=== PATIENT | female | born 1985 | race Hispanic/Latino ===

== ENCOUNTER 2017-12-09 10:26 | Emergency (ER) | payer BC, OTHER ==
[2017-12-09] MEDS ORDERED: MAG HYDROX/AL HYDROX/SIMETH ES 30 ML SUSP UDCUP ONE (10:37)
[2017-12-09] MEDS ORDERED: LIDOCAINE HCL 2% VISCOUS 15 ML UDCUP ONE (10:37)
[2017-12-09 11:11] LABS: BASOPHILS % (AUTO) 0.7 % (0.0-5.0); EOSINOPHILS % (AUTO) 3.9 % (0.0-8.0); HEMATOCRIT 40.1 % (36-48); LYMPHOCYTES % (AUTO) 22.4 % (21.0-51.0); MEAN CORPUSCULAR HEMOGLOBIN 28.5 pg (27.0-33.0); MEAN CORPUSCULAR HGB CONC 34.3 g/dL (32.0-36.0); MEAN CORPUSCULAR VOLUME 83.2 fL (79-99); MONOCYTES % (AUTO) 6.1 % (3.0-13.0); NEUTROPHILS % (AUTO) 66.9 % (40.0-77.0); PLATELET COUNT (AUTO) 325 K/uL (130-400); RED BLOOD CELL COUNT(AUTO) 4.83 MIL/uL (4.00-5.50); RED CELL DISTRIBUTION WIDTH 13.9 % (11.0-15.5); WHITE BLOOD COUNT (AUTO) 10.1 K/uL (4.8-10.8)
[2017-12-09 11:18] LABS: AMPHET/METH SCREEN,URINE NEGATIVE (NEGATIVE); BARBITURATE SCREEN, URINE NEGATIVE (NEGATIVE); BENZODIAZEPINES SCREEN,URINE POSITIVE (NEGATIVE); CANNABINOID SCREEN,URINE NEGATIVE (NEGATIVE); COCAINE SCREEN,URINE NEGATIVE (NEGATIVE); OPIATE SCREEN,URINE NEGATIVE (NEGATIVE); PHENCYCLIDINE SCREEN,URINE NEGATIVE (NEGATIVE)
[2017-12-09 11:18] LABS: CREATININE 0.9 mg/dL (0.5-1.5); POTASSIUM 3.9 mmol/L (3.5-5.1)
[2017-12-09 11:20] LABS: APPEARANCE,URINE Cloudy (CLEAR); BILIRUBIN,URINE Negative (NEGATIVE); COLOR,URINE Yellow (YELLOW); GLUCOSE, URINE (UA) Negative (NEGATIVE); KETONES,URINE Negative (NEGATIVE); LEUKOCYTE ESTERASE ,URINE Negative (NEGATIVE); NITRATE,URINE Negative (NEGATIVE); OCCULT BLOOD,URINE Trace (NEGATIVE); PROTEIN,URINE Negative (NEGATIVE); UROBILINOGEN,URINE 0.2 mg/dL (0.2-1.0)
[2017-12-09 11:23] LABS: BILIRUBIN,TOTAL 0.4 mg/dL (0.2-1.0)
[2017-12-09 12:11] LABS: BACTERIA,URINE Rare /HPF (None Seen); RBC,URINE 0-1 /HPF (0-1); SQUAMOUS EPITHELIAL CELL,UR Rare /HPF (0-2)
== END 2017-12-09 11:57 | disposition home or self-care (01) ==
LOC: EDH 10:26
DX: K29.70 Gastritis, unspecified, without bleeding (principal); I10 Essential (primary) hypertension; F41.9 Anxiety disorder, unspecified; Z87.891 Personal history of nicotine dependence
CPT/HCPCS: 36415; 80053; 80305; 81001; 82150; 83690; 84484; 85025; 86677; 93005

== ENCOUNTER 2020-01-15 19:39 | Inpatient (IN) | payer OTHER, SELFPAY ==
[~2020-01-15] VITALS: Ht 149.9 cm; Wt 82.6 kg
[~2020-01-15 19:39] MED LIST: MAGNESIUM CITRATE 296 ML SOLUTION PO ONE
[2020-01-15 21:00] VITALS: BP 138/88; PULSE 68; RESP 18; TEMP 98.1
--- NOTE | 2020-01-15 21:00 | NUR ---
Patient came in via wheelchair wheeled by Jesus Fowler, vat washer. Patient is a direct admit from Dr. Esparza with chief complaints of abdominal pain pelvic area started 3 weeks ago. Patient oriented to room, call light given Plan of care discussed with patient she verbalizes understanding.
[2020-01-15] MEDS: TIZANIDINE HCL 2 MG TABLET PO SCH (21:40)
[2020-01-15] MEDS: DEXTROSE 5%-LACTATED RINGERS 1,000 ML IV SCH (22:43)
[2020-01-16] VITALS (7 sets, daily range): BP systolic 91–149; BP diastolic 57–87; PULSE 69–98; RESP 18–20; TEMP 97.8–98.2
[2020-01-16] MEDS ORDERED: MEPERIDINE-PF 50 MG/ML SYG ONE (00:12)
[2020-01-16] MEDS: DEXTROSE 5%-LACTATED RINGERS 1,000 ML IV SCH ×3 (05:39→22:17)
[2020-01-16] MEDS: PROMETHAZINE HCL 25 MG/ML 1ML AMPULE IM PRN ×4 (05:50→22:18)
--- NOTE | 2020-01-16 08:45 | NUR ---
UROLOGY CONSULT DR. KNOWLES'S OFFICE NOTIFIED OF CONSULT. OFFICE STAED THEY WILL INFORM DR. KNOWLES.
[2020-01-16] MEDS: METOPROLOL TARTRATE 50 MG TAB PO SCH ×2 (09:33→21:08)
[2020-01-16] MEDS: HYDROCHLOROTHIAZIDE 25 MG TABLET PO SCH (09:33)
[2020-01-16] MEDS: FERROUS SULFATE 325 MG TABLET.DR PO SCH (09:34)
[2020-01-16] MEDS: LISINOPRIL 20 MG TABLET PO SCH (09:34)
[2020-01-16] MEDS: ALPRAZOLAM 1 MG TAB PO SCH ×3 (09:34→21:08)
[2020-01-16] MEDS: PANTOPRAZOLE SODIUM 40 MG TABLET.DR PO SCH (09:34)
[2020-01-16] MEDS: MEPERIDINE-PF 50 MG/ML SYG IVP PRN ×4 (09:37→22:20)
[2020-01-16] MEDS ORDERED: MAGNESIUM CITRATE 296 ML SOLUTION PO ONE (10:00)
--- NOTE | 2020-01-16 12:40 | NUR ---
PHYSICIAN ROUNDING DR. MOON AT BEDSIDE TO DISCUSS POC FOR SURGERY IN AM. PT VERBALIZED UNDERSTANDING. DR. MOON SPOKE VIA TELEPHONE TO DR. KNOWLES REGARDING BILATERAL URETERAL STENT PLACEMENT.
[2020-01-16] MEDS: ONDANSETRON HCL 4 MG/2 ML VIAL IVP PRN (13:10)
--- NOTE | 2020-01-16 18:24 | NUR ---
CM NOTE/IA UNSUCCESSFUL MEET WITH PATIENT IN ROOM. PATIENT RECEIVING MEDICATIONS FROM NURSE AT THE MOMENT, CM TO FOLLOW UP FOR IA. Addendum: 01/16/20 at 1825 by EVAN CORTEZ RN CM Amended: Links added.
--- NOTE | 2020-01-16 19:07 | NUR ---
Dr. Viveros rounded in patient room; Dr. Viveros came to talk to patient discussed Plan of care explained the procedure to be done in AM. Patient verbalizes understanding. He ordered to make a separate consent for Abdominal Hysterectomy and indicated procedure and Placement of Bilateral Urethral Stents.
[2020-01-16] MEDS: TIZANIDINE HCL 2 MG TABLET PO SCH (21:00)
[2020-01-16] MEDS: QUETIAPINE FUMARATE 25 MG TAB PO SCH (21:08)
--- NOTE | 2020-01-16 21:35 | NUR ---
Vaginal Douche done with Betadine solution.
[2020-01-17] VITALS (23 sets, daily range): BP systolic 114–149; BP diastolic 68–89; PULSE 66–106; RESP 14–20; TEMP 97.3–99.2
--- NOTE | 2020-01-17 05:00 | NUR ---
PATIENT; PATIENT UP IN THE BATHROOM AND TOOK A SHOWER. ADVICE TO DRY OFF HER HAIR THOROUGHLY SHE VERBALIZES UNDERSTANDING.
[2020-01-17] MEDS: METOPROLOL TARTRATE 50 MG TAB PO SCH ×2 (06:00→22:21)
--- NOTE | 2020-01-17 07:00 | NUR ---
Patient brought to OR for Surgery; Patient is scheduled for Total Abdominal Hysterectomy and placement of Bilateral Ureteral Stent Placement via bed accompanied by OR Tech and Nurse.
[2020-01-17] MEDS: LACTATED RINGERS 1000ML 1,000 ML IV SCH ×2 (07:11→10:25)
[2020-01-17] MEDS ORDERED: PROPOFOL 10 MG/ML 20ML VIAL IV ONE (07:15)
[2020-01-17] MEDS ORDERED: ROCURONIUM 10MG/1ML SYR 10 MG/ML ML ONE (07:15)
[2020-01-17] MEDS ORDERED: SUCCINYLCHOLINE 200MG/10ML SYR ONE (07:15)
[2020-01-17] MEDS ORDERED: MIDAZOLAM HCL 1 MG/ML 2ML VIAL ONE (07:15)
[2020-01-17] MEDS ORDERED: LIDOCAINE PF 2% 5ML ABBOJECT ONE (07:15)
[2020-01-17] MEDS ORDERED: FENTANYL CITRATE PF 50 MCG/1 ML 2ML VIAL ONE (07:16)
[2020-01-17] MEDS ORDERED: DURAMORPH PF1 MG/ML 10ML AMP IV ONE (07:20)
[2020-01-17] MEDS ORDERED: CEFAZOLIN SODIUM 1 GM VIAL ONE (07:34)
[2020-01-17] MEDS ORDERED: IOHEXOL-350 50ML VIAL IV ONE (07:43)
[2020-01-17] MEDS: ALPRAZOLAM 1 MG TAB PO SCH ×3 (09:00→22:22)
[2020-01-17] MEDS: HYDROCHLOROTHIAZIDE 25 MG TABLET PO SCH (09:00)
[2020-01-17] MEDS: LISINOPRIL 20 MG TABLET PO SCH (09:00)
[2020-01-17] MEDS ORDERED: ONDANSETRON HCL 4 MG/2 ML VIAL ONE (09:42)
[2020-01-17] MEDS ORDERED: NEOSTIGMINE 5MG/5ML SYR IV ONE (09:42)
[2020-01-17] MEDS ORDERED: GLYCOPYRROLATE 1 MG/5 ML SYRINGE ONE (09:42)
[2020-01-17] MEDS ORDERED: BISACODYL 10 MG SUPP.RECT RC PRN (10:30)
[2020-01-17] MEDS ORDERED: IBUPROFEN 600 MG TABLET PO PRN (10:30)
[2020-01-17] MEDS ORDERED: ACETAMINOPHEN-CODEINE 300/30MG TAB PO PRN (10:30)
[2020-01-17] MEDS ORDERED: MEPERIDINE-PF 75 MG/ML SYG IM PRN (10:30)
[2020-01-17] MEDS ORDERED: MEPERIDINE-PF 25 MG/ML SYG ONE ×4 (10:35→20:15)
[2020-01-17] MEDS: DEXTROSE 5%-LACTATED RINGERS 1,000 ML IV SCH ×2 (11:39→19:09)
--- NOTE | 2020-01-17 11:45 | NUR ---
RECEIVED PT FROM PACU VIA BED IN STABLE CONDITION. FULL ASSESSMENT DONE; SEE NURSING DOCUMENTATION. WILL CONTINUE TO MONITOR THROUGHOUT SHIFT.
[2020-01-17] MEDS: ONDANSETRON HCL 4 MG/2 ML VIAL IVP PRN (12:09)
[2020-01-17] MEDS: PANTOPRAZOLE SODIUM 40 MG TABLET.DR PO SCH (12:15)
[2020-01-17] MEDS: FERROUS SULFATE 325 MG TABLET.DR PO SCH (12:15)
[2020-01-17] MEDS ORDERED: DiphenhydrAMINE HCL 50 MG/ML VIAL ONE (13:39)
[2020-01-17] MEDS ORDERED: MEPERIDINE-PF 50 MG/ML SYG ONE ×2 (15:11→20:15)
[2020-01-17] MEDS: PROMETHAZINE HCL 25 MG/ML 1ML AMPULE IM PRN ×2 (15:15→20:22)
[2020-01-17] MEDS: CEFAZOLIN SODIUM 1 GM VIAL IVP SCH (19:04)
[2020-01-17] MEDS: CALDOLOR 800MG+NS 250ML 250 ML IV SCH (19:04)
[2020-01-17] MEDS: QUETIAPINE FUMARATE 25 MG TAB PO SCH (22:20)
[2020-01-17] MEDS: SIMETHICONE 80 MG TAB.CHEW PO PRN (22:21)
[2020-01-17] MEDS: DOCUSATE SODIUM 100 MG CAP PO PRN (22:21)
[2020-01-17] MEDS: TIZANIDINE HCL 2 MG TABLET PO SCH (22:21)
--- NOTE | 2020-01-17 22:30 | NUR ---
STATUS PATIENT REFUSED METOPROLOL, HR 95 , B/P 133/82 O2 SAT 96%, RESTING COMFORTABLY Addendum: 01/18/20 at 0359 by JERILYN LUCERO LVN Amended: Links added.
--- NOTE | 2020-01-18 00:30 | NUR ---
STATUS PATIENT GOT OUT OF BED ON HER OWN, VERBALIZED FELT LIKE HAVING BM, RETURNED TO BED, C/O CRAMPING. WILL CONTINUE TO OBSERVE AND TRANSFER CLOSE TO NURSES STATION Addendum: 01/18/20 at 0402 by JERILYN LUCERO LVN Amended: Links added.
--- NOTE | 2020-01-18 01:00 | NUR ---
ROOM TRANSFER TRANSFERRED VIA BED TO ROOM 117
[2020-01-18] MEDS: CALDOLOR 800MG+NS 250ML 250 ML IV SCH (01:53)
[2020-01-18] MEDS: CEFAZOLIN SODIUM 1 GM VIAL IVP SCH (01:54)
[2020-01-18 05:05] VITALS: BP 112/57; PULSE 88; RESP 20; TEMP 98.8
[2020-01-18 07:31] VITALS: BP 136/79; PULSE 89; RESP 20; TEMP 98.1
[2020-01-18] MEDS: HYDROCHLOROTHIAZIDE 25 MG TABLET PO SCH (08:44)
[2020-01-18] MEDS: FERROUS SULFATE 325 MG TABLET.DR PO SCH (08:44)
[2020-01-18] MEDS: LISINOPRIL 20 MG TABLET PO SCH (08:44)
[2020-01-18] MEDS: METOPROLOL TARTRATE 50 MG TAB PO SCH ×2 (08:44→21:00)
[2020-01-18] MEDS: PANTOPRAZOLE SODIUM 40 MG TABLET.DR PO SCH (08:44)
[2020-01-18] MEDS: ALPRAZOLAM 1 MG TAB PO SCH ×3 (08:45→21:23)
[2020-01-18] MEDS ORDERED: MEPERIDINE-PF 25 MG/ML SYG ONE (08:49)
[2020-01-18] MEDS ORDERED: MEPERIDINE-PF 50 MG/ML SYG ONE (08:49)
[2020-01-18] MEDS: DEXTROSE 5%-LACTATED RINGERS 1,000 ML IV SCH (08:56)
[2020-01-18] MEDS: PROMETHAZINE HCL 25 MG/ML 1ML AMPULE IM PRN (08:56)
--- NOTE | 2020-01-18 08:58 | NUR ---
ASSISTED TO THE BATHROOM, VOIDED 300 ML, PERICARE DONE, ASSISTED BACK TO BED. PT TOLERATED WELL Addendum: 01/18/20 at 0906 by CORRY RICHMOND RN Amended: Links added.
[2020-01-18 11:28] VITALS: BP 155/96; PULSE 96; RESP 20; TEMP 98.4
[2020-01-18] MEDS: SIMETHICONE 80 MG TAB.CHEW PO PRN ×2 (11:49→21:32)
[2020-01-18] MEDS: DOCUSATE SODIUM 100 MG CAP PO PRN ×2 (11:49→21:31)
[2020-01-18] MEDS: ACETAMINOPHEN-CODEINE 300/30MG TAB PO PRN (11:50)
[2020-01-18] MEDS: IBUPROFEN 600 MG TABLET PO PRN ×2 (15:07→21:32)
[2020-01-18 15:15] VITALS: BP 139/86; PULSE 83; RESP 20; TEMP 99.4
--- NOTE | 2020-01-18 15:42 | NUR ---
Ambulating in the hallway in steady gait Addendum: 01/18/20 at 1603 by CORRY RICHMOND RN Amended: Links added.
--- NOTE | 2020-01-18 16:35 | NUR ---
DC PLAN VISITED WITH PATIENT. PATIENT LIVES WITH CHILDREN. 9,10,13 CURRENTLY STAYING WITH GRANDPARENTS. INDEPENDENT ABLE TO PERFORM ADL'S. PATIENT HAS NO SERVICES OR DME'S. FEELS SAFE TO RETURN HOME. LOW INCOME CLINIC INFO GIVEN GETS MEDS AT [facility]. Addendum: 01/18/20 at 1636 by ISAI PINEDA RN CM Amended: Links added.
[2020-01-18 19:50] VITALS: BP 104/56; PULSE 83; RESP 18; TEMP 99
[2020-01-18] MEDS: TIZANIDINE HCL 2 MG TABLET PO SCH (21:23)
[2020-01-18] MEDS: QUETIAPINE FUMARATE 25 MG TAB PO SCH (21:23)
--- NOTE | 2020-01-18 23:28 | NUR ---
PATIENT REFUSED TO TAKE METOPROLOLBECAUSE OF LOW B/P
[2020-01-19 00:30] VITALS: BP 87/40; PULSE 82; RESP 18; TEMP 98
[2020-01-19 03:05] VITALS: BP 83/51; PULSE 82; RESP 18; TEMP 97.7
[2020-01-19] MEDS: ACETAMINOPHEN-CODEINE 300/30MG TAB PO PRN (06:41)
[2020-01-19 07:35] VITALS: BP 107/66; PULSE 81; RESP 18; TEMP 97.7
--- NOTE | 2020-01-19 07:45 | NUR ---
ASSESSMENT DONE AND INCISION WITH STERI STRIPS OPEN TO AIR. DRESSING CHANGED AND CLEAN DRESSING APPLIED TO SITE. PATIENT INSTRUCTED ON CARE OF INCISION AND WRITTEN LITERATURE WILL BE GIVEN. NO DRAINAGE NOTED BUT SOME BRUISING TO UPPER PART OF INCISION NOTED.
[2020-01-19] MEDS: LISINOPRIL 20 MG TABLET PO SCH (09:22)
[2020-01-19] MEDS: HYDROCHLOROTHIAZIDE 25 MG TABLET PO SCH (09:23)
[2020-01-19] MEDS: ALPRAZOLAM 1 MG TAB PO SCH (09:24)
[2020-01-19] MEDS: PANTOPRAZOLE SODIUM 40 MG TABLET.DR PO SCH (09:24)
[2020-01-19] MEDS: FERROUS SULFATE 325 MG TABLET.DR PO SCH (09:24)
[2020-01-19] MEDS: IBUPROFEN 600 MG TABLET PO PRN (09:25)
[2020-01-19] MEDS: METOPROLOL TARTRATE 50 MG TAB PO SCH (09:25)
--- NOTE | 2020-01-19 10:45 | NUR ---
PATIENT WAS GIVEN DISCHARGE INSTRUCTIONS AND VERBALIZED UNDERSTANDING INSTRUCTIONS GIVEN. SCRIPT ISSUED AND INSTRUCTED ON DOSAGE AND FREQUENCY OF MEDICATIONS PRESCRIBED AND TIME NEXT HOME MEDS ARE DUE. VERBALIZED UNDERSTANDING INSTRUCTIONS GIVEN. PIV WAS REMOVED AND SITE WNL.
[2020-01-19 11:28] VITALS: BP 129/83; PULSE 92; RESP 19; TEMP 97.3
--- NOTE | 2020-01-19 12:05 | NUR ---
PATIENT WAS TAKEN VIA W/C TO FAMILY VEHICLE AND WAS DISCHARGED TO HER FAMILY IN STABLE CONDITION. PATIENT DENIES PAIN AT THIS TIME.
== END 2020-01-19 12:05 | disposition home or self-care (01) | DRG 743 ==
LOC: EDH 19:39 → WSH 19:40
PROVIDERS: ADMIT Obstetrics & Gynecology; ATTEND Obstetrics & Gynecology
PROC: 0TNB0ZZ Release Bladder, Open Approach (ICD-10-PCS; 2020-01-17)
PROC: 0T788DZ Dilation of Bilateral Ureters with Intraluminal Device, Via Natural or Artificial Opening Endoscopic (ICD-10-PCS; principal; 2020-01-17 07:30)
PROC: 0UT90ZZ Resection of Uterus, Open Approach (ICD-10-PCS; 2020-01-17 07:30)
PROC: 0UB50ZZ Excision of Right Fallopian Tube, Open Approach (ICD-10-PCS; 2020-01-17 07:30)
PROC: 0UB00ZZ Excision of Right Ovary, Open Approach (ICD-10-PCS; 2020-01-17 07:30)
PROC: 0TN60ZZ Release Right Ureter, Open Approach (ICD-10-PCS; 2020-01-17 07:30)
DX: D25.9 Leiomyoma of uterus, unspecified (principal); N73.6 Female pelvic peritoneal adhesions (postinfective); I10 Essential (primary) hypertension; K21.9 Gastro-esophageal reflux disease without esophagitis; E11.9 Type 2 diabetes mellitus without complications

== ENCOUNTER 2021-02-01 15:29 | Observation (INO) | payer OTHER ==
[~2021-02-01] VITALS: Ht 149.9 cm; Wt 86.0 kg
[~2021-02-01 15:29] MED LIST changes: +ALPR-412 PO; +IRON1TAB41 PO; +LISI1TAB29 PO; -MAGNESIUM CITRATE 296 ML SOLUTION PO ONE; +METO100T14 PO; +PANT40TA54 PO; +QUET50TA22 PO; +TIZA4CAP8 PO
[2021-02-01 15:30] VITALS: BP 178/75
[2021-02-01 15:50] LABS: BASOPHILS % (AUTO) 0.4 % (0.0-5.0); EOSINOPHILS % (AUTO) 3.2 % (0.0-8.0); HEMATOCRIT 39.5 % (36-48); LYMPHOCYTES % (AUTO) 26.3 % (21.0-51.0); MEAN CORPUSCULAR HGB CONC 32.4 g/dL (32.0-36.0); MEAN CORPUSCULAR VOLUME 83.3 fL (79-99); NEUTROPHILS % (AUTO) 62.8 % (40.0-77.0); PLATELET COUNT (AUTO) 284 K/uL (130-400); RED BLOOD CELL COUNT(AUTO) 4.74 MIL/uL (4.00-5.50); RED CELL DISTRIBUTION WIDTH 14.6 % (11.0-15.5); WHITE BLOOD COUNT (AUTO) 9.1 K/uL (4.8-10.8)
[2021-02-01 15:58] LABS: CREATININE 0.7 mg/dL (0.5-1.5); POTASSIUM 3.6 mmol/L (3.5-5.1)
[2021-02-01 16:09] LABS: ALBUMIN 3.9 g/dL (3.5-5.0); BILIRUBIN,TOTAL 0.2 mg/dL (0.2-1.0); TOTAL PROTEIN, SERUM 7.8 g/dL (6.0-8.3)
[2021-02-01] MEDS ORDERED: CEFAZOLIN SODIUM 1 GM VIAL IVP SCH (16:30)
[2021-02-01 19:45] VITALS: BP 156/89
[2021-02-01 23:00] VITALS: BP 169/88
[2021-02-01] MEDS ORDERED: ZOLP5TAB8 PO (23:23)
[2021-02-01 23:55] VITALS: BP 169/88
[2021-02-02] MEDS: CEFAZOLIN SODIUM 1 GM VIAL IVP SCH ×3 (01:58→18:10)
[2021-02-02 04:14] VITALS: BP 101/59
[2021-02-02 08:00] VITALS: BP 136/83
[2021-02-02] MEDS: MORPHINE 2 MG SYG IVP PRN ×2 (10:49→15:40)
[2021-02-02 12:00] VITALS: BP 149/92
[2021-02-02 16:00] VITALS: BP 160/83
[2021-02-02] MEDS ORDERED: ZOLPIDEM TARTRATE 5 MG TAB PO PRN (16:00)
[2021-02-02] MEDS ORDERED: IBUPROFEN 800 MG TAB PO PRN (17:00)
[2021-02-02 19:59] VITALS: BP 144/82
[2021-02-02] MEDS ORDERED: TIZANIDINE HCL 2 MG TABLET PO SCH (21:00)
[2021-02-02] MEDS ORDERED: QUETIAPINE FUMARATE 25 MG TAB PO SCH (21:00)
[2021-02-02] MEDS: METOPROLOL TARTRATE 50 MG TAB PO SCH (21:06)
[2021-02-02] MEDS: ALPRAZOLAM 1 MG TAB PO SCH (21:07)
[2021-02-02 23:39] VITALS: BP 106/56
[2021-02-03] VITALS (11 sets, daily range): BP systolic 111–153; BP diastolic 62–90
[2021-02-03] MEDS: CEFAZOLIN SODIUM 1 GM VIAL IVP SCH ×3 (02:40→18:00)
[2021-02-03] MEDS ORDERED: PANTOPRAZOLE 40 MG TAB DR PO SCH (09:00)
[2021-02-03] MEDS: ALPRAZOLAM 1 MG TAB PO SCH ×2 (09:14→15:26)
[2021-02-03] MEDS: METOPROLOL TARTRATE 50 MG TAB PO SCH (09:15)
[2021-02-03] MEDS ORDERED: 0.9%NACL 1000ML 1,000 ML IV ONE (13:13)
[2021-02-03] MEDS ORDERED: CEFAZOLIN SODIUM 1 GM VIAL ONE (13:31)
[2021-02-03] MEDS ORDERED: 0.9%NACL 10ML VIAL ONE (13:33)
[2021-02-03] MEDS ORDERED: LIDOCAINE HCL 1% 20 ML VIAL ONE (13:34)
[2021-02-03] MEDS ORDERED: BUPIVACAINE/PF 0.5% 10ML VIAL ONE (13:34)
[2021-02-03] MEDS ORDERED: MIDAZOLAM HCL 1 MG/ML 2ML VIAL ONE ×2 (13:37→13:41)
[2021-02-03] MEDS ORDERED: FENTANYL CITRATE PF 50 MCG/1 ML 2ML VIAL ONE (13:39)
[2021-02-03] MEDS ORDERED: PROPOFOL 10 MG/ML 20ML VIAL IV ONE (13:43)
[2021-02-03] MEDS ORDERED: LACTATED RINGERS 1000ML 1,000 ML IV ONE (13:45)
== END 2021-02-03 18:45 | disposition home or self-care (01) ==
LOC: EDH 15:29 → EDHIP 15:45 → CMPBEDREQ 20:54 → 3CH 22:44
PROVIDERS: ADMIT Surgery Plastic and Reconstructive Surgery; ATTEND Surgery Plastic and Reconstructive Surgery
DX: S00.451A Superficial foreign body of right ear, initial encounter (principal); Z20.822 Contact with and (suspected) exposure to COVID-19; H60.01 Abscess of right external ear; H66.41 Suppurative otitis media, unspecified, right ear; I10 Essential (primary) hypertension; E66.9 Obesity, unspecified; K21.9 Gastro-esophageal reflux disease without esophagitis; Z68.38 Body mass index [BMI] 38.0-38.9, adult; W45.8XXA Other foreign body or object entering through skin, initial encounter
CPT/HCPCS: 36415; 69005; 80053; 84702; 85025; 87040 ×2; 87635; 96374; 96375; 96376 ×2; 99284; A4215; A4221; A4222; A4223 ×2; A4248; A4663; C9803; G0378 ×50; J0690 ×7; J2250 ×2; J2704; J3010; J3490; J7030 ×2; J7120

== ENCOUNTER → 2022-10-22 | Outpatient (CLI) | payer BC ==
[~2022-10-22] MED LIST changes: -IRON1TAB41 PO; -LISI1TAB29 PO; -QUET50TA22 PO; +QUET50TA24 PO; +ZOLP5TAB8 PO
[2022-10-22 16:21] LABS: BASOPHILS % (AUTO) 0.7 % (0.0-5.0); EOSINOPHILS % (AUTO) 4.5 % (0.0-8.0); HEMATOCRIT 39.6 % (36-48); LYMPHOCYTES % (AUTO) 34.7 % (21.0-51.0); MEAN CORPUSCULAR HEMOGLOBIN 29.2 pg (27.0-33.0); MEAN CORPUSCULAR HGB CONC 32.8 g/dL (32.0-36.0); NEUTROPHILS % (AUTO) 51.7 % (40.0-77.0); PLATELET COUNT (AUTO) 326 K/uL (130-400); RED BLOOD CELL COUNT(AUTO) 4.45 MIL/uL (4.00-5.50); WHITE BLOOD COUNT (AUTO) 8.3 K/uL (4.8-10.8)
[2022-10-22 17:01] LABS: CREATININE 0.7 mg/dL (0.5-1.5); POTASSIUM 3.8 mmol/L (3.5-5.1); T4 (THYROXINE) 8.2 ug/dL (4.7-13.3); THYROID STIMULATING HORMONE 1.91 uIU/mL (0.36-3.74); TOTAL PROTEIN, SERUM 7.2 g/dL (6.0-8.3)
== END | disposition home or self-care (01) ==
LOC: LAB 14:36
PROVIDERS: ATTEND Physician Assistant
DX: I10 Essential (primary) hypertension (principal); R00.2 Palpitations
CPT/HCPCS: 36415; 80053; 83735; 84436; 84443; 85025

== ENCOUNTER → 2022-11-16 | Outpatient (CLI) | payer OTHER | END | disposition home or self-care (01) | LOC: RAH 13:49 | PROVIDERS: ATTEND Internal Medicine Cardiovascular Disease | DX: Z13.6 Encounter for screening for cardiovascular disorders (principal) | CPT/HCPCS: 75571 ==

== ENCOUNTER 2024-10-05 06:39 | Emergency (ER) | payer OTHER ==
[~2024-10-05] VITALS: Ht 160 cm; Wt 81.6 kg
--- NOTE | 2024-10-05 08:00 | ERN ---
ED Note History of Present Illness Stated Complaint: WEAKNESS Chief Complaint: Weakness Dictation: History of present illness: 39-year-old female past medical history of hypertension, gastritis, migraines, insomnia, palpitations presented to ED with complaints generalized weakness and headache of 3 days' duration. Since Wednesday she has been experiencing generalized body weakness, sore throat, headache, occasional ankle and knee pain. Also that she feels that her bodies heavy period and started having abdominal pain since today morning. She states that her tongue feels like cotton ball and is very dry and she is thirsty. she is experiencing palpitations on and off. She has chills and is nauseous but denies vomiting, loose stool, dysuria, photophobia, shortness of breath, cough or chest pain. She gives history of tick bite 1 year ago. Allergies: Coded Allergies: benazepril (Unverified Allergy, Unknown, HIVES, 01/15/20) Home Meds Reported Medications Zolpidem Tartrate (Zolpidem Tartrate) 5 Mg Tablet, 5 MG PO HSPRN PRN for INSOMNIA, TAB 02/01/21 Tizanidine HCl (Tizanidine HCl) 4 Mg Capsule, 4 MG PO HS, CAP 01/15/20 Quetiapine Fumarate (Quetiapine Fumarate) 50 Mg Tablet, 50 MG PO HS, TAB 01/15/20 Alprazolam (Alprazolam) 2 Mg Tab.rapdis, 2 MG PO TID, TAB 01/15/20 Pantoprazole Sodium (Pantoprazole Sodium) 40 Mg Tablet.dr, 40 MG PO AM, TAB 01/15/20 Metoprolol Tartrate (Metoprolol Tartrate) 100 Mg Tablet, 100 MG PO BID, TAB 01/15/20 Past Medical History Past Medical History: Hypertension Surgical History: Hysterectomy, Cholecystectomy, Family History: Negative Social History: Negative, Lives with family Review of System Dictation REVIEW OF SYSTEMS Positive for generalized weakness, headache, abdominal pain, dry mouth, palpitations CONSTITUTIONAL: Denies fevers, chills, or night sweats. No unintentional weight loss reported. ENT: No hearing loss, otalgia, otorrhea, rhinitis, rhinorrhea, hoarseness, or sore throat. CARDIOVASCULAR: Denies any exertional angina, dyspnea on exertion, orthopnea, paroxysmal nocturnal dyspnea, palpitations claudication. PULMONARY: Denies any shortness of breath, cough, phlegm / sputum, hemoptysis, pleuritic chest pain. SLEEP: Denies morning headaches, daytime somnolence or napping. Denies difficulty falling asleep, staying asleep, waking from sleep. Denies knowledge of snoring. GASTROINTESTINAL: Denies any type of dysphagia to either liquids or solids. Denies nausea, vomiting, abdominal pain, diarrhea, constipation, blood in stools . NEUROLOGICAL: Denies headache, motor weakness, sensory deficit, vertigo / spinning sensation, gait abnormalities, or tremors. GENITOURINARY: Denies frequency, urgency, nocturia, hematuria or incontinence, low urinary stream, straining to void, urinary intermittency or hesitancy ENDOCRINOLOGY: Denies polyuria, polydipsia, polyphagia or heat / cold intolerance. HEMATOLOGY: Denies thrombophilia / previous clots, or coagulopathy / bleeding disorders. ONCOLOGIC: Denies personal history of malignancy. DERMATOLOGIC: Denies rashes or pruritus. PSYCHIATRIC: Denies any suicidal or homicidal ideation. Denies hallucinations. Initial Vital Sign VS Vital Signs Date Time Temp Pulse Resp B/P (MAP) Pulse Ox O2 Delivery O2 Flow Rate FiO2 10/05/24 06:43 97.3 71 20 140/92 98 Room Air 0 10/05/24 11:39 21 Physical Exam Dictation PHYSICAL EXAM GENERAL APPEARANCE: . Awake and alert. Oriented to time, place and person. No acute cardiopulmonary distress. HEENT: Head normocephalic , atraumatic. Sclera anicteric . Pupils are round and reactive. Extraocular movements intact . No conjunctival injection. No nasal congestion. No throat congestion . Dry oral mucosa NECK: Supple. No JVD. No thyromegaly. No submental, submandibular, pre- /postauricular, occipital or supraclavicular lymphadenopathy. No carotid bruits. CHEST: Normal chest expansion. No Telemetry. LUNGS: Clear to auscultation bilaterally . No rales, rhonchi or any wheezing. Equal tactile fremitus. Resonant to percussion . CARDIOVASCULAR: Regular rate and rhythm. S1 and S2 normal. No rubs, murmurs or gallops. ABDOMEN: Abdomen appears firm. Tenderness in the lower abdomen. No hepatosplenomegaly. Bowel sounds normal in all four quadrants . NEUROLOGICAL: Cranial nerves II-XII grossly intact. Motor is 5/5 in bilateral upper and lower extremities . No sensory deficits. EXTREMITIES: No edema, No cyanosis , No clubbing. Good capillary refill. SKIN: No skin breakdown. No rashes or lesions . PSYCHIATRY: Normal affect .No auditory or visual hallucinations. Normal speech. No dysarthria. Results (Laboratory/Radiology) Laboratory/Radiology Laboratory Tests Test 10/05/24 07:58 10/05/24 09:14 10/05/24 09:52 Urine Color YELLOW (YELLOW) Urine Appearance CLOUDY (CLEAR) H Urine pH 6.0 (5.0-8.0) Urine Specific [place] 1.015 (1.001-1.031) Urine Protein NEGATIVE mg/dL (NEGATIVE) Urine Glucose (UA) NEGATIVE mg/dL (NEGATIVE) Urine Ketones NEGATIVE mg/dL (NEGATIVE) Urine Occult Blood SMALL (NEGATIVE) H Urine Nitrate 2+ (NEGATIVE) H Urine Bilirubin NEGATIVE mg/dL (NEGATIVE) Urine Urobilinogen 0.2 mg/dL (0.2-1.0) Urine Leukocyte Esterase 500 Gildardo/uL (NEGATIVE) H Urine RBC 0-1 /HPF (0-1) Urine WBC TNTC /HPF (0-1) H Urine Squamous Epithelial Cells MANY /HPF (0-2) Urine Bacteria FEW /HPF (None Seen) Urine HCG, Qualitative NEGATIVE (NEGATIVE) White Blood Count 8.5 K/uL (4.8-10.8) Red Blood Count 4.38 MIL/uL (4.00-5.50) Hemoglobin 13.3 g/dL (12.0-16.0) Hematocrit 39.5 % (36-48) Mean Corpuscular Volume 90.2 fL (79-99) Mean Corpuscular Hemoglobin 30.4 pg (27.0-33.0) Mean Corpuscular Hemoglobin Concent 33.7 g/dL (32.0-36.0) Red Cell Distribution Width 13.0 % (11.0-15.5) Platelet Count 302 K/uL (130-400) Mean Platelet Volume 11.5 fL (7.5-10.5) H Immature Granulocyte % (Auto) 0.4 % (0-1) Neutrophils (%) (Auto) 64.5 % (40.0-77.0) Lymphocytes (%) (Auto) 25.6 % (21.0-51.0) Monocytes (%) (Auto) 6.4 % (3.0-13.0) Eosinophils (%) (Auto) 2.5 % (0.0-8.0) Basophils (%) (Auto) 0.6 % (0.0-5.0) Neutrophils # (Auto) 5.5 K/uL (1.8-7.7) Lymphocytes # (Auto) 2.2 K/uL (1.0-4.8) Monocytes # (Auto) 0.5 K/uL (0.1-1.0) Eosinophils # (Auto) 0.21 K/uL (0.00-0.70) Basophils # (Auto) 0.05 K/uL (0.00-0.20) Absolute Immature Granulocyte (auto 0.03 K/uL (0-1) Nucleated Red Blood Cells 0.0 % (0.0-0.19) Sodium Level 136 mmol/L (136-145) Potassium Level 3.9 mmol/L (3.5-5.1) Chloride Level 103 mmol/L (101-111) Carbon Dioxide Level 29 mmol/L (21-32) Blood Urea Nitrogen 8 mg/dL (7-18) Creatinine 0.7 mg/dL (0.5-1.0) Glomerular Filtration Rate Calc 111 mL/min (>90) Random Glucose 91 mg/dL (70-105) Total Calcium 8.6 mg/dL (8.5-10.1) Total Bilirubin 0.3 mg/dL (0.2-1.0) Direct Bilirubin 0.1 mg/dL (0.0-0.3) Aspartate Amino Transf (AST/SGOT) 32 U/L (10-37) Alanine Aminotransferase (ALT/SGPT) 54 U/L (12-78) Alkaline Phosphatase 56 U/L (50-136) Troponin I High Sensitivity 6 ng/L (4-50) Total Protein 7.1 g/dL (6.0-8.3) Albumin 3.5 g/dL (3.5-5.0) Influenza Type A Antigen Negative For Type A Influenza Type B Antigen Negative For Type B SARS-CoV-2 Antigen (Rapid) PRESUMPTIVE NEGATIVE EKG Comment: Ventricular rate of 67 beats per minute, regular sinus rhythm [place] 162, QT interval [address] segment elevation or depression noted ED Course ED Course Orders Procedure Category Date Status Time 12 Lead Ekg Tracing- EKG 10/05/24 Complete Technical 07:25 Cbc With Differential LAB 10/05/24 Complete 07:25 Basic Metabolic Panel LAB 10/05/24 Complete 07:25 Hepatic Function Panel LAB 10/05/24 Complete 07:25 Urinalysis Profile LAB 10/05/24 Complete 07:25 Troponin I High LAB 10/05/24 Complete Sensitivity 07:25 ,Urine Test LAB 10/05/24 Complete 07:25 Covid19 (Sars Antigen LAB 10/05/24 Complete Rapid) 07:25 Influenza Type A & B, LAB 10/05/24 Complete Rapid 07:25 0.9%Nacl 1000ml (Ns PHA 10/05/24 In Process 1000ml) 08:30 Ondansetron 4mg Inj PHA 10/05/24 Complete (Zofran 4mg Inj) 08:30 Culture Urine KLAUS 10/05/24 In Process 09:06 Ketorolac PHA 10/05/24 Complete Tromethamine 15mg/Ml 10:00 Blood Cult KLAUS 10/05/24 In Process 12:09 Ceftriaxone 2gm Vial PHA 10/05/24 Complete (Rocephin 2gm Inj) 12:30 Ct Abd/Pel Wo Con CT 10/05/24 Resulted Renal/Appy 12:09 Us Pelvic Non-Ob Comp US 10/05/24 Resulted 13:50 Morphine 4mg Syg PHA 10/05/24 Complete (Morphine 4mg Syg) 16:00 Current Medications Medications (Trade) Dose Ordered Sig/Imani Route PRN Reason Start Time Stop Time Status Last Admin Dose Admin Ceftriaxone Sodium (Rocephin 2gm Inj) 2 gm ONCE ONCE IVPB 10/05/24 12:30 10/05/24 12:31 DC 10/05/24 12:17 Ketorolac Tromethamine (toRADol) 15 mg ONCE ONCE IM 10/05/24 10:00 10/05/24 10:01 DC 10/05/24 10:26 Morphine Sulfate (morPHINE 4MG SYG) 4 mg ONCE ONCE IVP 10/05/24 16:00 10/05/24 16:01 DC Ondansetron HCl (zoFRAN 4MG INJ) 4 mg ONCE ONCE IVP 10/05/24 08:30 10/05/24 08:31 DC 10/05/24 10:26 Sodium Chloride 1,000 ml @ 100 mls/hr Q10H ONCE IV 10/05/24 08:30 10/05/24 18:29 10/05/24 10:26 Vital Signs Date Time Temp Pulse Resp B/P (MAP) Pulse Ox O2 Delivery O2 Flow Rate FiO2 10/05/24 13:10 97.9 75 18 127/85 98 Room Air* 0 21 10/05/24 11:39 97.9 70 20 135/87 99 Room Air* 0 21 10/05/24 06:43 97.3 71 20 140/92 98 Room Air 0 7;30 am-patient is hemodynamically stable. She complains of lower abdominal pain. Medical Decision Making MDM Differential diagnosis : Urinary tract infection, influenza Rationale: Tests considered and ordered secondary to shared decision making include: I will re-evaluate the patient after treatment and diagnostic exams have returned to determine whether they require further testing, can be safely discharged home, or need admission for further treatment and evaluation. Given the social determinants of health affecting care, including literacy, access to medical care, prescription drug management, and [id number] drugs, I will ensure that treatment plans are tailored accordingly. There are no social concerns with this patient. Risk of complication and/or morbidity or mortality of patient management: None Need for hospitalization: Patient does not meet criteria for hospitalization. Need for emergency major/minor surgery: No Prescription drug management Prescriptions will include symptomatic care Medications-Per medication reconciliation Previous outside records reviewed: Old ER visits. Patient's prior external medical records from other ER visits were reviewed by me as indicated. Prior testing and results from previous visits were reviewed. Prior tests were taken into account with medical decision making and resource utilization, independent historian/historians were used to obtain complete medical history. I independently interpreted the test that were performed, results were reviewed by me and considered findings on radiology. Medical management and examination interpretation discussions was done by me with other qualified healthcare professionals as indicated for the patient's care. CC: Lower abdominal pain generalized weakness Historian: Patient Comorbidities: Cholecystectomy hysterectomy left oophorectomy Limitations by social determinants of health: None Differential diagnosis: Appendicitis, cyst, GI pathology, surgical pathology, other. Vital signs: Stable remained stable in the ER Labs (independently ordered and interpreted by me): No leukocytosis or anemia normal CBC. Metabolic panel normal. Liver function normal. Troponin normal. Urinalysis does show 2+ nitrites, leuk esterase and WBCs. We will treat. Flu SARS negative. CT abdomen and pelvis without contrast (independently interpreted by me): There is a complex right adnexal cyst/complex structure. Pelvic ultrasound (independently interpreted by me): Good flow to the right ovary, complex 11 cm cyst. Treatment in ED: 1 L of normal saline, 4 mg IV Zofran, 15 mg IV Toradol, 2 g of Rocephin, 4 mg IV morphine. Re-evaluation: Pain much better controlled. Ambulatory p.o. tolerant. Nontoxic. Consultation: Hospitalist for admission for pain control and gynecologic consultation. Unfortunately, hospitalist unable to accept the patient was we do not have gynecological services anymore. Consultation: Dr. Moon, OBGYN. We reviewed the case including the finding of an 11 cm complex cyst in the right adnexa. Since patient's pain control she was nontoxic in appearance, she follow up as an outpatient. We agree on pain control and she will follow up Wednesday10/10/24 with doctor reyna Moon in the office. Plan: DC with prescription for [place], ibuprofen, cefpodoxime. Follow up with OBGYN next Wednesday. DX & DISP Disposition: Discharge Departure Impression: Primary Impression: Adnexal mass Additional Impression: Urinary tract infection Condition: Stable Scripts Cefpodoxime Proxetil (Cefpodoxime Proxetil) 200 Mg Tablet 200 MG PO BID for 10 Days, #20 TAB Prov: JJ GREGORIO DO 10/05/24 Ibuprofen (Ibuprofen 800 mg Tab) 800 Mg Tab 800 MG PO TIDP PRN for PAIN, #30 TAB Prov: JJ GREGORIO DO 10/05/24 Hydrocodone/Acetaminophen (Hydrocodon-Acetaminophen 5-325) 5 Mg-325 Mg Tablet 1-2 TAB PO TIDP PRN for pain for 5 Days, #20 TAB 0 Refills Prov: JJ GREGORIO DO 10/05/24 Additional Instructions: You have an 11cm complex cystic structure near the right ovary. This is likely causing your symptoms. Your vital signs have been stable here in the ER. Your blood work (CBC, BMP, liver function tests, troponin 0) is unremarkable. The urinalysis does show signs of infection. The CT scan of your abdomen and pelvis without contrast shows a complex cystic structure in the right adnexa. The pelvic ultrasound shows the same. You do have blood flow to the right ovary. I have prescribed ibuprofen 800 mg tabs. Take this 3 times a day as needed for pain. I have prescribed [place] tabs. You can take two tabs up to 3 times a day as needed for pain. I have prescribed cefpodoxime, which is an antibiotic. Please take as prescribed. As we discussed, please follow up with Dr. Vilma Majano, 10/10/2024. Please return to the emergency department if you have any concerns. Referrals: WINTER FOSTER MD (PCP) TRACEY MOON MD, ANCHU A MD Oct 05, 2024 08:00 JJ GREGORIO DO Oct 05, 2024 16:10
--- NOTE | 2024-10-05 08:20 | EKG ---
[facility] Test Date: 2024-10-05 Test Time: 07:52:25 Pat Name: IDALMIS BECKWITH Department: ED Room: Gender: F [employer]: [id number] : 1985 Requested By: WELLINGTON STOVER Order Number: [id number] Reading MD: John Ramos Measurements Intervals [place] Rate: 67 P: 53 CO: 162 QRS: 10 QRSD: 92 T: 1 QT: 418 QTc: 442 Interpretive Statements Sinus rhythm Nonspecific STT abnormality Compared to ECG 12/09/2017 11:25:02 No significant changes Electronically Signed On 10-08-2024 18:28:33 CDT by John Ramos Please click the below link to view image of tracing.
[2024-10-05 09:04] LABS: APPEARANCE,URINE CLOUDY (CLEAR); BILIRUBIN,URINE NEGATIVE (NEGATIVE); COLOR,URINE YELLOW (YELLOW); GLUCOSE, URINE (UA) NEGATIVE (NEGATIVE); KETONES,URINE NEGATIVE (NEGATIVE); LEUKOCYTE ESTERASE ,URINE 500 Leu/uL (NEGATIVE); NITRATE,URINE 2+ (NEGATIVE); OCCULT BLOOD,URINE SMALL (NEGATIVE); PROTEIN,URINE NEGATIVE (NEGATIVE); UROBILINOGEN,URINE 0.2 mg/dL (0.2-1.0)
[2024-10-05 09:06] LABS: ADD UA MICROSCOPIC YES
[2024-10-05 09:10] LABS: BACTERIA,URINE FEW /HPF (None Seen); MUCUS,URINE RARE LPF (None Seen); RBC,URINE 0-1 /HPF (0-1); SQUAMOUS EPITHELIAL CELL,UR MANY /HPF (0-2); WBC,URINE TNTC /HPF (0-1)
[2024-10-05 09:17] LABS: HCG,QUALITATIVE URINE NEGATIVE (NEGATIVE)
[2024-10-05 09:30] LABS: BASOPHILS # (AUTO) 0.05 K/uL (0.00-0.20); BASOPHILS % (AUTO) 0.6 % (0.0-5.0); EOSINOPHILS # (AUTO) 0.21 K/uL (0.00-0.70); EOSINOPHILS % (AUTO) 2.5 % (0.0-8.0); HEMATOCRIT 39.5 % (36-48); IMMATURE GRANULOCYTE ABSOLUTE 0.03 K/uL (0-1); LYMPHOCYTES # (AUTO) 2.2 K/uL (1.0-4.8); LYMPHOCYTES % (AUTO) 25.6 % (21.0-51.0); MEAN CORPUSCULAR HEMOGLOBIN 30.4 pg (27.0-33.0); MEAN CORPUSCULAR HGB CONC 33.7 g/dL (32.0-36.0); MEAN CORPUSCULAR VOLUME 90.2 fL (79-99); MONOCYTES # (AUTO) 0.5 K/uL (0.1-1.0); MONOCYTES % (AUTO) 6.4 % (3.0-13.0); NEUTROPHILS # (AUTO) 5.5 K/uL (1.8-7.7); NEUTROPHILS % (AUTO) 64.5 % (40.0-77.0); PLATELET COUNT (AUTO) 302 K/uL (130-400); RED BLOOD CELL COUNT(AUTO) 4.38 MIL/uL (4.00-5.50); WHITE BLOOD COUNT (AUTO) 8.5 K/uL (4.8-10.8)
[2024-10-05 09:37] LABS: CREATININE 0.7 mg/dL (0.5-1.0); POTASSIUM 3.9 mmol/L (3.5-5.1)
[2024-10-05 09:41] LABS: ALBUMIN 3.5 g/dL (3.5-5.0); BILIRUBIN,DIRECT 0.1 mg/dL (0.0-0.3); BILIRUBIN,TOTAL 0.3 mg/dL (0.2-1.0); TOTAL PROTEIN, SERUM 7.1 g/dL (6.0-8.3)
[2024-10-05] MEDS: ketOROlac 15MG/ML VIAL (15MG/ML) IM ONE (10:26)
[2024-10-05] MEDS: ondanSETRON 4MG INJ IVP ONE (10:26)
[2024-10-05] MEDS: 0.9%NACL 1000ML 1,000 ML IV ONE (10:26)
[2024-10-05 11:41] LABS: COVID19 (SARS ANTIGEN RAPID) PRESUMPTIVE NEGATIVE (NEGATIVE); INFLUENZA TYPE A Negative For Type A (NEGATIVE); INFLUENZA TYPE B Negative For Type B (NEGATIVE)
[2024-10-05] MEDS: CEFTRIAXONE 2GM VIAL IVPB ONE (12:17)
--- NOTE | 2024-10-05 13:24 | HMCIMG ---
Exam Type: CT ABD/PEL WO CON RENAL/APPY Clinical Information: abdominal pain Comparison: None Contrast: 100 cc's Isovue 370 IV, no complications or adverse reactions CT Dose Index (CTDI): 31.60 mGy Dose Length Product (DLP): 1740.80 total mGy-cm Findings: No evidence of nephro or ureterolithiasis is found. No hydronephrosis or ureteral dilatation is seen. Noncalcified nodule of the right lower lobe posterior segment, 16 mm. The stomach is unremarkable. It shows no wall thickening. No gross ulceration is seen. It is not overly distended. There are no surrounding inflammatory changes. No wall lesions are identified to suggest cancer. The spleen is unremarkable. It is not enlarged. The pancreas shows normal anatomy. It is not fatty replaced. It shows no lesions. The pancreatic duct is not dilated. The gallbladder is surgically absent. The adrenal glands are unremarkable. There is no enlargement. No lesions are noted. The liver is unremarkable. It shows no focal masses. The appendix is unremarkable. It shows no evidence of inflammation. No appendicolith is seen. The small bowel is unremarkable. There is no evidence of dilatation to suggest obstruction. No evidence of adynamic ileus is seen. There is no small bowel wall thickening to suggest enteritis. The colon is unremarkable. The urinary bladder is unremarkable. There is no wall thickening to suggest tumor or inflammation. There are no intraluminal calculi. There are no diverticula. There is no evidence of chronic bladder outlet obstruction. There is no evidence of urinary bladder distention to suggest urinary retention. Right adnexal complex multicystic structure is seen possibly representing functional ovarian cysts. Please correlate. The bony and vascular structures are unremarkable for the patient's age. IMPRESSION: Right adnexal complex multicystic structure is seen possibly representing functional ovarian cysts. Please correlate. Noncalcified pulmonary nodule. 6 month follow-up CT chest recommended. No acute pathology. This study was performed using dose reduction techniques to include automated exposure control and/or adjustment of the mA and/or kV according to patient size.
--- NOTE | 2024-10-05 15:22 | HMCIMG ---
Exam Type: US PELVIC NON-OB COMP Clinical Information: cyst Comparison: None Findings: The uterus and the left ovary removed. Right ovary measures 3.7 x 3.2 x 3.6 cm with a complex cystic structure measuring 11.3 cm. No other abnormalities. IMPRESSION: Complex cyst right ovary. Consider short-term follow-up to confirm possible resolution.
[2024-10-05] MEDS ORDERED: CEFP200T14 PO (16:08)
[2024-10-05] MEDS: morPHINE 4 MG SYG IVP ONE (16:08)
[2024-10-05] MEDS ORDERED: IBUP-2077 PO (16:08)
[2024-10-05] MEDS ORDERED: HYDR-4060 PO (16:08)
[2024-10-05 16:11] VITALS: BP 121/79; PULSE 70; RESP 18; TEMP 97.9; O2SAT 98
--- NOTE | 2024-10-05 16:26 | NUR ---
FAMILY HERE FOR PATIENT
== END 2024-10-05 16:45 | disposition home or self-care (01) ==
LOC: EDH 06:39
DX: N39.0 Urinary tract infection, site not specified (principal); R22.9 Localized swelling, mass and lump, unspecified; N83.209 Unspecified ovarian cyst, unspecified side; I10 Essential (primary) hypertension; Z20.822 Contact with and (suspected) exposure to COVID-19; Z79.899 Other long term (current) drug therapy; Z90.49 Acquired absence of other specified parts of digestive tract; Z90.710 Acquired absence of both cervix and uterus; Z90.721 Acquired absence of ovaries, unilateral
CPT/HCPCS: 99285; 74176; 96365; 76856; 96375; 96361; 87426; 80076; 84484; 80048; 85025; 87040 ×2; 87086 ×2; 87186; 87804 ×2; 81001; 81025; 36415; 93005; 96372; J1885; J7030; J0696; J2405; J2270

== ENCOUNTER → 2024-12-04 | Outpatient (CLI) | payer OTHER ==
[~2024-12-04] MED LIST changes: +CEFP200T14 PO; +HYDR-4060 PO; +IBUP-2077 PO
--- NOTE | 2024-12-04 14:47 | HMCIMG ---
CT NONCONTRAST CHEST Comparison Study: CT chest April 28, [address] abdomen pelvis demonstrated in the lung bases October 05, 2024 History: PULMONARY NODULE Technique: Helical CT of the chest without IV contrast at 5 mm collimation. Coronal and sagittal reformations also done. CT Dose Index (CTDI): 2.38 mGy Dose Length Product (DLP): 94.8 total mGy-cm Findings: The airway is intact. The trachea and major bronchi are unremarkable. There are 2 noncalcified nodules of the right upper lobe measuring 7 and 5 mm respectively. Right middle lobe noncalcified nodule is seen measuring 7 mm. Several bilateral lower lobe noncalcified nodules are seen the largest of which measures 12 mm right lower lobe lateral segment. All of these are interval development since the examination of 2016 No significant pulmonary parenchymal abnormalities are noted. No pulmonary infiltrates or mass lesions are seen. No pleural effusions are identified. There is no pneumothorax. There is no evidence of pneumomediastinum. The nonenhanced exam of the enrique and mediastinum is unremarkable. No evidence of hilar enlargement is seen. The aorta shows no aneurysmal dilatation or significant atheromatous calcification. No significant brachiocephalic vascular abnormalities are seen. The heart is unremarkable. It is not enlarged. No significant coronary arterial calcifications are seen. There is no pericardial effusion. The rib cage appears unremarkable. The soft tissues of the chest wall are unremarkable. The dorsal spine shows no significant abnormalities. IMPRESSION: Stable right lower lobe nodule compared with prior CT Chest abdomen pelvis with demonstrates a lower lobe nodules. Other pulmonary noncalcified nodules as noted above. Since these are stable since the earlier exam of this year September 2024, I recommend continued follow-up in 6 month intervals with noncontrast CT of the chest. This study was performed using dose reduction techniques to include automated exposure control and/or adjustment of the mA and/or kV according to patient size.
== END | disposition home or self-care (01) ==
LOC: RAH 13:36
PROVIDERS: ATTEND Family Medicine
DX: R91.8 Other nonspecific abnormal finding of lung field (principal)
CPT/HCPCS: 71250